=== PATIENT | male | born 1945 | race Two or more races ===

== ENCOUNTER → 2024-10-09 | Outpatient (CLI) | payer MEDICARE, SELFPAY ==
--- NOTE | 2024-10-09 13:31 | XR_ITS ---
Examination: CT chest, without intravenous contrast. CT abdomen, without intravenous contrast. CT pelvis, without intravenous contrast. 2-D sagittal and coronal reconstructions. 3-D reconstructions. Date and time of exam:October 09, 2024 1355 hours Comparison April 03, 2012 INDICATIONS: 70 pound weight loss in the last 2 years CTDI vol (mgy) 5.26 DLP (MGycm)112 Technique: Multiple CT images, 3.0 mm slice thickness, obtained chest, abdomen, pelvis, with the high-resolution 64 slice scanner.. Sagittal and coronal 2-D reconstructions are obtained. 3-D reconstructions Low dose protocols were performed. One or more of the following dose reduction techniques were used; automated exposure control, adjustment of the mA and/or KV according to patient size, use of iterative reconstruction technique. Findings: No thoracic aortic aneurysm dilatation Pulmonary artery segments are not enlarged Heavy calcification left main left anterior descending left circumflex right coronary arteries Mild enlargement cardiac contour No pneumonia or pulmonary edema or pleural disease No visualized liver or splenic lesion Absent gallbladder No pancreatic or adrenal mass 2 mm nonobstructing right renal calculus Aorta normal size No bowel obstruction Normal appendix Colonic diverticulosis, no diverticulitis Normal seminal vesicles No prostatomegaly No bladder mass or bladder calculi Prominent osteopenia IMPRESSION: No mediastinal lymphadenopathy Heavy coronary artery calcification No pneumonia, pulmonary edema or pleural disease 2 mm nonobstructing right renal calculus No abdominal or pelvic lymphadenopathy Normal appendix
== END | disposition home or self-care (01) ==
LOC: CCTX 13:20
PROVIDERS: PCP Internal Medicine; Referring Provider Internal Medicine; Visit Provider Internal Medicine
DX: I25.10 Atherosclerotic heart disease of native coronary artery without angina pectoris (principal); N20.0 Calculus of kidney
CPT/HCPCS: 71250; 74176

== ENCOUNTER → 2024-11-11 | Outpatient (CLI) | payer MEDICARE, SELFPAY ==
[2024-11-11 15:12] LABS: Basophils # (Auto) 0.0 Thou/mm3 (0.0-0.2); Basophils % (Auto) 1 % (0-2.5); Eosinophils # (Auto) 0.0 Thou/mm3 (0.0-0.5); Eosinophils % (Auto) 0 % (0-10); Hematocrit 40.7 % (41.0-53.0); Hemoglobin 13.4 g/dL (13.5-16.0); Immature Granulocytes Auto 0.01 Thou/mm3 (0.00-0.00); Lymphocytes # (Auto) 0.9 Thou/mm3 (1.0-4.8); Lymphocytes % (Auto) 14 % (10-50); Mean Corpuscular HGB Conc 32.9 g/dl (31.0-37.0); Mean Corpuscular Hemoglobin 30.5 pg (25.0-35.0); Mean Corpuscular Volume 93 fL (80-100); Monocytes # (Auto) 0.5 Thou/mm3 (0.0-0.8); Monocytes % (Auto) 7 % (0-12); Neutrophils # (Auto) 5.0 Thou/mm3 (1.8-7.7); Neutrophils % (Auto) 78 % (37-80); Nucleated Red Blood Cell # 0.00 Thou/mm3 (0.00-0.00); Nucleated Red Blood Cell % 0 /100 WBC (0); Platelet Count 139 Thou/mm3 (140-440); RDW Standard Deviation 47.4 fL (35.1-43.9); Red Blood Count 4.40 Miln/mm3 (4.50-5.90); White Blood Count 6.3 Thou/mm3 (3.8-10.6)
[2024-11-11 15:37] LABS: Alanine Aminotransferase 488 U/L (10-49); Albumin, Serum 3.4 gm/dL (3.4-4.8); Albumin/Globulin Ratio 1.2 (1.2-2.2); Alkaline Phosphatase 1784 U/L (46-116); Amylase 71 U/L (30-118); Anion Gap 9 (7-16); Aspartate Amino Transferase 727 U/L (0-34); BUN/Creatinine Ratio 23 Ratio (12-20); Bilirubin,Total 14.2 mg/dL (0.3-1.2); Blood Urea Nitrogen 23 mg/dL (9-23); Calcium 10.5 mg/dL (8.3-10.6); Calcium (Corrected) 11.0 mg/dL (8.5-10.1); Carbon Dioxide 29.0 mMol/L (20.0-31.0); Chloride 94 mMol/L (98-107); Creatinine (Component) 1.0 mg/dL (0.6-1.3); Globulin 2.8 gm/dL (2.3-3.5); Glucose 162 mg/dL (74-106); Lipase 104 U/L (12-53); Osmolality,Calculated 272 (275-295); Potassium 3.6 mMol/L (3.4-5.1); Sodium 132 mMol/L (136-145); Total Protein 6.2 gm/dL (5.7-8.2); eGFR > 60 See Note
== END | disposition home or self-care (01) ==
LOC: COPL 14:42
PROVIDERS: PCP Internal Medicine; Referring Provider Specialist; Visit Provider Specialist
DX: R14.0 Abdominal distension (gaseous) (principal); R10.32 Left lower quadrant pain; R11.0 Nausea
CPT/HCPCS: 36415; 80053; 81001; 82150; 83690; 85025

== ENCOUNTER → 2024-11-15 | Outpatient (CLI) | payer MEDICARE, SELFPAY ==
[2024-11-15 10:51] LABS: Collection Type, Urine Clean Catch; WBC,Urine 0 /hpf (0-5)
[2024-11-15 12:01] LABS: Bilirubin,Urine 4+ (Negative); Blood,Urine 1+ (Negative); Clarity,Urine Turbid (Clear/Hazy); Color,Urine Drk-Yellow (Lt Yel-Yel); Glucose, Urine 2+ (Negative); Ketones,Urine Negative (Negative); Leukocyte Esterase,Urine Negative (Negative); Nitrite,Urine Negative (Negative); PH,Urine 6.5 (5.0-7.0); Protein,Urine 1+ (Neg - Trace); RBC,Urine < 1 /hpf (0-3); Specific Gravity,Urine 1.020 (1.001-1.035); Squamous Epithelial Cell,Urine < 1 /hpf (0-5); Urobilinogen,Urine Negative mg/dL (0.0-1.0)
== END | disposition home or self-care (01) ==
LOC: SLDO 10:38
PROVIDERS: Referring Provider Specialist; Visit Provider Specialist
DX: R14.0 Abdominal distension (gaseous) (principal); R10.32 Left lower quadrant pain; R11.0 Nausea
CPT/HCPCS: 81001

== ENCOUNTER 2024-11-18 13:30 | Day surgery (SDC) | payer MEDICARE, SELFPAY ==
[2024-11-15 15:34] VITALS: BMI 19.6
[2024-11-18] VITALS (13 sets, daily range): BP systolic 113–176; BP diastolic 66–96; PULSE 71–88; RESP 12–24; TEMP 36.4; O2SAT 96–99; BMI 17.6
[2024-11-18] MEDS: BENZOCAINE 20% (Hurricaine) SPRAY 1 DOSE TOP (14:45)
[2024-11-18] MEDS: SODIUM CHLORIDE 0.9% 250 ML 250 ML 125 ML IV (14:45)
[2024-11-18] MEDS: fentaNYL CIT INJ 50 mCg/ML AMP 2ML (ASD USE ONLY) IVP (14:47)
[2024-11-18] MEDS: MIDAZOLAM INJ 1 MG/ML VIAL 2 ML (ASD USE ONLY) 2 MG IVP (14:47)
--- NOTE | 2024-11-18 15:25 | SUR.PHASEII ---
1506 patient is sleepy and arousable, breathing unlabored, s/p EGD under IV sedation, report received from Kyra NATH. patient has jaundice color to skin and eyes.
--- NOTE | 2024-11-18 16:10 | SUR.PHASEII ---
1608 patient is awake, alert, breathing unlabored, able to drink 7up with no nausea, vomiting or difficulty swallowing, meets discharge criteria, discharge instructions given to patient and daughter Luana, patient discharged home in wheelchair with all belongings.
== END 2024-11-18 16:08 | disposition home or self-care (01) ==
PROVIDERS: PCP Family Medicine; Referring Provider Specialist; Visit Provider Specialist
PROC: (CPT 43239; 2024-11-18 13:45)
DX: K22.2 Esophageal obstruction (principal); K20.90 Esophagitis, unspecified without bleeding; K29.70 Gastritis, unspecified, without bleeding; K31.89 Other diseases of stomach and duodenum; Z79.82 Long term (current) use of aspirin; Z79.899 Other long term (current) drug therapy; I10 Essential (primary) hypertension; E78.5 Hyperlipidemia, unspecified
CPT/HCPCS: 43248; 43239; A4649; J2250; J3010; J7050; A9270

== ENCOUNTER 2024-11-18 16:32 | Emergency (ER) | payer MEDICARE, SELFPAY ==
[2024-11-18] VITALS (10 sets, daily range): BP systolic 125–151; BP diastolic 70–84; PULSE 66–92; RESP 13–20; TEMP 36.7–37.1; O2SAT 90–98; BMI 18.2
--- NOTE | 2024-11-18 16:56 | XR_ITS ---
Examination: CT cervical spine without contrast 2-D sagittal reconstructions 2-D coronal reconstructions 3-D reconstructions. Exam date and time:November 18, 2024, 1805 hrs. Indications: Ground-level fall today with injury to the neck, neck pain CTDI:vol (mGy) 14.2 DLP: (mGycm) 337 Technique: Multiple 2 mm axial sections of the cervical spine have been obtained. The coronal and sagittal reconstructions have been obtained. 3-D reconstructions have been obtained. Low dose protocols were performed. One or more of the following dose reduction techniques were used; automated exposure control, adjustment of the mA and/or KV according to patient size, use of iterative reconstruction technique. Findings: Axial sections demonstrate intact base of the skull. C1 exhibit satisfactory relationship to the odontoid. No acute cervical vertebral body fracture seen. Alignment posterior spinous processes satisfactory. Impression: No acute cervical fracture.
--- NOTE | 2024-11-18 16:56 | XR_ITS ---
Examination: CT brain head without contrast. 2-D sagittal coronal reconstructions Date and time of exam:November 18, 2024, 1805 hrs. Indications: Ground-level fall today with injury to the head, head pain CTDI: vol (mGy):52.6 DLP: (mGycm):1131 Technique: Multiple CT axial sections of the brain have been obtained, 5 mm slice thickness. Contrast has not been administered. 2-D sagittal, coronal reconstructions have been obtained Low dose protocols were performed. One or more of the following dose reduction techniques were used; automated exposure control, adjustment of the mA and/or KV according to patient size, use of iterative reconstruction technique. Findings: No significant ventricular enlargement. Intra-axial or extra-axial hemorrhage density is not seen. No mass effect or midline shift Basal cisterns are not remarkable. Fourth ventricle is midline. Cranial vault intact. Impression: Negative for acute hemorrhage, mass effect or midline shift
--- NOTE | 2024-11-18 17:03 | EKG_ITS ---
[facility] Test Date: 2024-11-18 Pat Name: SHEN MONTALVO Department: Room: - Gender: Male Cell Room Supervisor: : 1945 Requested By: Yovany Manuel Order Number: [id number] Reading MD: Yovany Manuel Measurements Intervals [place] Rate: 83 P: 52 ME: 150 QRS: -57 QRSD: 91 T: 67 QT: 370 QTc: 436 Interpretive Statements SINUS RHYTHM LEFT AXIS DEVIATION [QRS AXIS < -30] PATTERN CONSISTENT WITH PULMONARY DISEASE Compared to ECG 10/02/2023 08:35:46 Left-axis deviation now present Ventricular premature complex(es) no longer present /store/S0/[id number]/ecg/[id number].pdf
--- NOTE | 2024-11-18 17:05 | PD.EDADULT ---
ED General RME/HPI General Chief complaint: Weakness Stated complaint: HEAD PAIN S/P Fall Time Seen by Provider: 11/18/24 16:56 Arrival date/time: 11/18/24 16:32 CC: Fall and scalp laceration HPI patient fell after colonoscopy today by Dr. Mclain in the hospital. EMS reports stable vital signs and route. Baseline Glascow coma 14 is unchanged. Patient is noted to be profoundly jaundiced including icteric sclera's. Patient answers his name but is unable to state where he is, where he had his colonoscopy or what happened to him. Patient currently denies any physical pain. At 1999, daughter at bedside states the patient has had losing weight, and the loss of appetite for the last 6 weeks plus or minus. Related Data Home Medications ?Medication ?Instructions ?Recorded ?Confirmed atorvastatin 20 mg tablet 20 mg PO HS 11/08/22 11/18/24 ferrous sulfate 325 mg (65 mg 325 mg PO BID 11/08/22 11/18/24 iron) tablet aspirin 81 mg tablet,delayed 81 mg PO QDAY 10/02/23 11/18/24 release losartan 100 mg tablet 100 mg PO QDAY 10/02/23 11/18/24 Allergies Allergy/AdvReac Type Severity Reaction Status Date / Time No Known Drug Allergies Allergy Verified 11/18/24 14:09 Review of Systems Review of Systems Narrative Review of Systems: GEN: No fever, no chills, no weight loss EYES: No discharge, no visual changes, no pain HEENT: No ear pain, no congestion, no sore throat PULM: No shortness of breath, no cough, no congestion CV: No chest pain, no dyspnea on exertion, no palpitations GI: No nausea, no vomiting, no diarrhea, no pain, no constipation : No frequency, no urgency, no dysuria MUSC/SKEL: No joint pain, no back pain SKIN: Scalp laceration no rash PSYCH: No hallucinations, no depression HEME/LYMPH: No easy bleeding or bruising tendencies NEURO: No weakness, no headache Past Medical History Past Medical History NEUROLOGIC: Negative Neurological Disorders or Seizures CARDIAC: Positive Cardiac Disorders, Hypercholesterolemia and Hypertension; Negative Congestive Heart Failure RESPIRATORY: Negative Chronic Obstructive Pulmonary Disease (COPD) GASTROINTESTINAL: Positive Gastrointestinal Disorders (esophageal stricture), Gastrointestinal Bleed and Gastroesophageal Reflux Disease; Negative Hepatitis GENITOURINARY: Negative Genitourinary Disorders or Renal Disease MUSCULOSKELETAL: Negative Musculoskeletal Disorders ENT: Positive Cataracts (right) ENDOCRINE: Negative Endocrine Disorders, Diabetes Mellitus Type 1 or Diabetes Mellitus Type 2 HEMATOLOGIC: Positive Blood Disorders and Anemia OTHER HISTORY: Positive Hospitalization (surgery), Shingles and Measles; Negative Autoimmune Disease, Falls, Blood Transfusions, Blood Transfusion Reaction, Anesthesia Reactions, Chicken Pox or Cancer Family History FAMILY HISTORY: Negative Family Psychiatric Problems, Family Respiratory Disorders, Family Cardiac Disorders, Family Gastrointestinal Problems, Family Cancer, Family Surgery or Family Anesthesia Reaction Surgical History SURGICAL: Positive Coronary Artery Bypass Graft, Angiogram, Abdominal Surgery, Gastric Bypass Surgery and Vasectomy; Negative Pacemaker or Joint Replacement Social History SMOKING STATUS: Former smoker ED Exam Narrative Physical exam: [General: Thin but not emaciated not in any acute distress Head normocephalic, no step-offs hematoma induration ulceration or crepitus HEENT: Eyes pupils are PERRLA EOMs are intact no injected conjunctiva icteric sclera's. Mouth pink dry membranes uvula is midline swallow symmetrical. All other subsystems of HEENT are within acceptable limits Neck is supple nontender Chest equal chest rise nontender to palpation Respiratory: Clear to auscultation no wheezes crackles or rubs CV: Rate rhythm is regular no murmurs rubs or clicks Abdomen is soft nontender no masses positive bowel sounds all 4 quadrants Back: No CVA tenderness no spinous process tenderness from cervical spine thoracic and lumbar spine Skin: Jaundice, 2 cm full-thickness laceration to the right sikh. Otherwise skin is intact no petechiae rash induration ulceration or crepitus Extremities: Moving all extremity against resistance cap refill less than 2 seconds neurosensory intact Neuro: Awake alert oriented x2, person and place Glascow coma 15 no focal deficits] Course Course Course Narrative: Although the patient patient originally came to us status post fall via EMS after colonoscopy the profound jaundice is of concern review the medical record show the patient's T. bili has increased from 1.8-14 in the matter of 6 to 8 weeks. Patient also has profound transaminitis. Prior to complete workup patient's case was discussed with Dr. Mclain who just finished doing colonoscopy for this patient who request the patient get a complete workup including an MRCP and he follow-up with him with the results. T. bili has risen significantly from November 10 from the 14 to today November 18 to 6.2. At this time I am waiting for an MRCP in approximately 8 hours, now I am concerned that there is a mass involving blocking the CBD. Will scan the patient's abdomen particularly as that the daughter is now made mention that he has lost appetite and lost a considerable amount of weight. Also reading Dr. Mclain's note that there is a duodenal mass some concern that there may be metastasis or other masses in the abdomen. 2147. The patient's CT results come back showing the patient has significant hepatoid biliary duct dilatation predominantly at the CBD highly suspicious for mass again suspicious for neoplasm. T. bili has risen markedly in 9 days from 14-26. Patient's case laboratory findings clinical disposition and imaging discussed with Dr. Mclain, GI specialist, who agrees to work with his [facility] connections and GI surgeon at [facility] for transfer of this patient. He is requesting that the MRCP completed in the morning and then he will attempt to get the patient transferred to [facility]. Quality Measures none Orders Category Date Time Status CT Screening NOW Care 11/18/24 20:18 Completed EKG (ED ONLY) *Do not use* NOW Care 11/18/24 17:03 Completed MRI Screening NOW Care 11/18/24 17:[address] abdomen pelvis w con Stat Exams 11/18/24 20:[address] cervical spine wo con Stat Exams 11/18/24 16:[address] head/brain wo con Stat Exams 11/18/24 16:56 Completed EKG (ED Only) Stat Exams 11/18/24 17:03 Draft MR MRCP Stat Exams 11/19/24 Completed Ammonia Stat Lab 11/18/24 17:31 Completed B-Type Natriuretic Peptide Stat Lab 11/18/24 17:31 Completed CBC Stat Lab 11/18/24 17:31 Completed Comprehensive Metabolic Panel Stat Lab 11/18/24 17:31 Completed Drug Screen,Urine Stat Lab 11/18/24 18:09 Completed LDH (Lactate Dehydrogenase) Stat Lab 11/18/24 17:31 Completed Magnesium Stat Lab 11/18/24 17:31 Completed Partial Thromboplastin Time Stat Lab 11/18/24 17:31 Completed Prothrombin Time with INR Stat Lab 11/18/24 17:31 Completed Troponin I Stat Lab 11/18/24 17:31 Completed Urinalysis, C/S if Indicated Stat Lab 11/18/24 18:10 Completed Aspirin Chew Med 11/18/24 21:38 Discontinued 324 mg PO X1 ONE Vital Signs Vital signs: Vital Signs Temperature 98.7 F 11/18/24 16:38 Pulse Rate 92 11/18/24 16:38 Respiratory Rate 18 11/18/24 16:38 Blood Pressure 125/84 11/18/24 16:38 Pulse Oximetry (%) 98 11/18/24 16:38 Oxygen Delivery Method Room Air 11/18/24 16:38 PROCEDURES: Procedure Comment Laceration repair consent obtained, 4 cm semilunar full-thickness laceration to the right sikh. Anesthesia 1% lidocaine without epinephrine 3 mL injected in the local site. The site was cleaned and probed no foreign body was found site was then approximated with 3 interrupted sutures of 5-0 Ethilon with good approximation without complication patient tolerated the procedure well dressing was applied. Discharge Plan Plan Patient Disposition: [facility] Pt Being Transferred to: [facility] Prescriptions/Referrals Prescriptions/Med Rec: No Action atorvastatin 20 mg tablet 20 mg PO HS Patient Comments: TAKE 1 TABLET BY MOUTH EVERY DAY FOR CHOLESTEROL ferrous sulfate 325 mg (65 mg iron) tablet 325 mg PO BID Patient Comments: TAKE 1 TABLET BY MOUTH TWICE A DAY FOR ANEMIA aspirin 81 mg Tablet,Delayed Release (Dr/Ec) 81 mg PO QDAY losartan 100 mg Tablet 100 mg PO QDAY Referrals: Yomaira Bermudez MD [Primary Care Provider, Family Practice] - In 1 week Problem List Clinical Impression: Fall, Face lacerations Patient/Caregiver Discharge Instructions Print Language: Chinese Stand Alone Forms: Michelle Award Info., Patient Portal Info Letter MDM Clinical Information Provided by patient and EMS Medical [facility] Meds/Rx Considered, not Ordered None Labs/Rad/Tests considered, not Ordered None EKG EKG Interpretation narrative: EKG performed at 1722 shows a ventricular rate of 83 SD interval 150 QRS of 91 QTc of 410 the sinus rhythm left axis deviation. Lab Interpretation Lab(s) interpretation(s): CBC shows no leukocytosis H&H of 11.2 and 32.7 respectively platelets at 151. PT 13.3 INR 1.2 PTT of 28.5. CMP shows a sodium 133 potassium 3.9 chloride of 94. BUN is 17 creatinine of 0.8 glucose of 121 calcium of 11.1 total bili of 26.2, AST of 467, ALT of 364 ammonia less than 10 LDH at 271. Troponin of 0.132. Note troponin has been rising over the past 2 weeks. Urine is dark yellow turbid spec gravity 1.0241+ glucose 2+ blood 4+ bilirubin negative for UTI. UDS positive for fentanyl and benzos note patient fell after colonoscopy. Imaging Imaging interpretation: interpreted by me Provider imaging interpretation(s): CT of head and C-spine as interpreted me read by radiology as negative for any acute finding. Medication Administration(s) Medication Administration History Discontinued Medications Aspirin (Aspirin 81 Mg Chew) 324 mg PO X1 ONE Stop: 11/18/24 21:39 Last Admin: 11/18/24 21:49 Dose: 324 mg Documented By: TOSHIA
[2024-11-18 17:49] LABS: Basophils # (Auto) 0.1 Thou/mm3 (0.0-0.2); Basophils % (Auto) 1 % (0-2.5); Eosinophils # (Auto) 0.0 Thou/mm3 (0.0-0.5); Eosinophils % (Auto) 0 % (0-10); Hematocrit 32.7 % (41.0-53.0); Hemoglobin 11.2 g/dL (13.5-16.0); Immature Granulocytes Auto 0.04 Thou/mm3 (0.00-0.00); Lymphocytes # (Auto) 0.6 Thou/mm3 (1.0-4.8); Lymphocytes % (Auto) 6 % (10-50); Mean Corpuscular HGB Conc 34.3 g/dl (31.0-37.0); Mean Corpuscular Hemoglobin 32.0 pg (25.0-35.0); Mean Corpuscular Volume 93 fL (80-100); Monocytes # (Auto) 0.6 Thou/mm3 (0.0-0.8); Monocytes % (Auto) 7 % (0-12); Neutrophils # (Auto) 7.6 Thou/mm3 (1.8-7.7); Neutrophils % (Auto) 86 % (37-80); Nucleated Red Blood Cell # 0.00 Thou/mm3 (0.00-0.00); Nucleated Red Blood Cell % 0 /100 WBC (0); Platelet Count 151 Thou/mm3 (140-440); RDW Standard Deviation 51.3 fL (35.1-43.9); Red Blood Count 3.50 Miln/mm3 (4.50-5.90); White Blood Count 8.9 Thou/mm3 (3.8-10.6)
[2024-11-18 18:03] LABS: INR 1.2 (0.9-1.3); Partial Thromboplastin Time 28.5 Seconds (22.0-36.0); Prothrombin Time 13.3 Seconds (9.0-12.2)
[2024-11-18 18:06] LABS: B-Type Natriuretic Peptide 59 pg/mL (0-100)
[2024-11-18 18:08] LABS: Ammonia < 10 uMol/L (11-32)
[2024-11-18 18:22] LABS: Collection Type, Urine Clean Catch
[2024-11-18 18:37] LABS: Bacteria,Urine Rare; Bilirubin,Urine 4+ (Negative); Blood,Urine 2+ (Negative); Clarity,Urine Turbid (Clear/Hazy); Color,Urine Drk-Yellow (Lt Yel-Yel); Culture Indicated,Urine Not Indicated; Glucose, Urine 1+ (Negative); Ketones,Urine Trace (Negative); Leukocyte Esterase,Urine Negative (Negative); Nitrite,Urine Negative (Negative); PH,Urine 5.5 (5.0-7.0); Protein,Urine 1+ (Neg - Trace); RBC,Urine 3 /hpf (0-3); Specific Gravity,Urine 1.024 (1.001-1.035); Squamous Epithelial Cell,Urine < 1 /hpf (0-5); Urobilinogen,Urine Negative mg/dL (0.0-1.0); WBC,Urine 5 /hpf (0-5)
[2024-11-18 18:56] LABS: Amphetamine/Methamp Scrn,U Negative (Negative); Barbiturate Screen,Urine Negative (Negative); Benzodiazepines Screen,Urine Positive (Negative); Benzoylecgonine Screen, Ur Negative (Negative); Fentanyl Screen,Urine Positive (Negative); Opiate Screen,Urine Negative (Negative); THC Screen,Urine Negative (Negative)
[2024-11-18 19:58] LABS: Alanine Aminotransferase 364 U/L (10-49); Albumin, Serum 3.4 gm/dL (3.4-4.8); Albumin/Globulin Ratio 1.2 (1.2-2.2); Anion Gap 11 (7-16); Aspartate Amino Transferase 467 U/L (0-34); BUN/Creatinine Ratio 21 Ratio (12-20); Blood Urea Nitrogen 17 mg/dL (9-23); Calcium 11.1 mg/dL (8.3-10.6); Calcium (Corrected) 11.6 mg/dL (8.5-10.1); Carbon Dioxide 27.9 mMol/L (20.0-31.0); Chloride 94 mMol/L (98-107); Creatinine (Component) 0.8 mg/dL (0.6-1.3); Estimated Creatinine Clearance 59.0 mL/min (>60); Globulin 2.8 gm/dL (2.3-3.5); Glucose 121 mg/dL (74-106); LDH (Lactate Dehydrogenase) 271 U/L (120-246); Magnesium 1.9 mg/dL (1.6-2.6); Osmolality,Calculated 268 (275-295); Potassium 3.9 mMol/L (3.4-5.1); Sodium 133 mMol/L (136-145); Total Protein 6.2 gm/dL (5.7-8.2); eGFR > 60 See Note
[2024-11-18 20:08] LABS: Troponin I 0.132 ng/mL (0.0-0.045)
--- NOTE | 2024-11-18 20:18 | XR_ITS ---
Examination: CT abdomen with intravenous contrast CT pelvis with intravenous contrast 2-D coronal reconstructions 2-D sagittal reconstructions Date and time of exam:November 18, 20242050 hrs. Comparison: October 09, 2024 Indications: Elevated bilirubin on laboratory examination today. CTDI: vol (mGy) 5.40 DLP: (mGycm) 334 Technique: Multiple axial sections of the abdomen and pelvis have been obtained. 64 slice high-resolution scanner used. 3 mm axial sections have been obtained, post intravenous injection 60 cc [id number] 2-D sagittal, coronal reconstructions obtained. Low dose protocols were performed. One or more of the following dose reduction techniques were used; automated exposure control, adjustment of the mA and/or KV according to patient size, use of iterative reconstruction technique. 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
[2024-11-18 20:21] LABS: Bilirubin,Total 26.2 mg/dL (0.3-1.2)
[2024-11-18 20:29] LABS: Alkaline Phosphatase 1735 U/L (46-116)
[2024-11-18] MEDS: ASPIRIN 81 MG CHEW 324 MG PO (21:49)
[2024-11-19] VITALS (11 sets, daily range): BP systolic 141–162; BP diastolic 66–87; PULSE 64–82; RESP 12–19; TEMP 36.3–36.8; O2SAT 96–100
--- NOTE | 2024-11-19 | XR_ITS ---
MRI abdomen, without contrast. MRCP Date and time of exam: November 19, 2024 0718 hours INDICATIONS: Jaundice abdominal pain this week weight loss 6 weeks Technique: Multiple axial and coronal images of the abdomen have been obtained with the Siemens 1.5T MRI scanner. Images obtained included T1 weighted transverse images, T2-weighted transverse images, T2-weighted transverse images fat-suppressed, T2 weighted haste fat suppressed transverse images, T1 weighted images, in and out of phase images, T2-weighted coronal images, breath hold, T2 weighted haze coronal images as well as T2 weighted coronal thick slab images, MRCP. Findings: Intrahepatic biliary tract dilatation Marked abnormal extrahepatic biliary tract dilatation, common hepatic duct 20 mm, abrupt termination of the distal common bile duct coronal image 10 Pancreatic duct is dilated 7 mm No obvious pancreatic mass Renal scarring, no hydronephrosis Spleen is not enlarged No ascites Aorta normal size IMPRESSION: Marked abnormal extra hepatic biliary tract dilatation with abrupt termination of the distal common bile duct, highest on the differential list would be malignant stricture at the ampulla Recommend ERCP/biopsies follow-up
--- NOTE | 2024-11-19 01:12 | EDNOTE_ITS ---
Emergency Room Addendum Addendum Narrative: 2300: Care assumed from Yovany Santana NP (emergency mid-level provider). Past medical, surgical, social and family history reviewed. Vitals and home medications reviewed. Results and treatment plan discussed. I will assume the care of the patient at this time and will follow the patient, pending MRCP. The following addendum documentation note is intended to reflect any pending information, findings, or radiology results not included in the patient?s in itial chart by the previous shift scribe. 0600: Care assumed by Dr. Hu (emergency physician). Past medical, surgical, social and family history reviewed. Vitals and home medications reviewed. Results and treatment plan discussed. They will assume the care of the patient at this time and will follow the patient, pending MRCP.
--- NOTE | 2024-11-19 09:36 | PD.EDADDENDU ---
Emergency Room Addendum Addendum Narrative: 0600: Care assumed from Dr. Arreaga, the previous shift emergency physician. Past medical, surgical, social and family history reviewed. Vitals and home medications reviewed. I will assume the care of the patient at this time, pending MRCP and final disposition. Please refer to the emergency department record for history and examination from initial visit.?The following addendum documentation note is intended to reflect any pending information, findings, or radiology results not included in the patient?s initial chart. 0954: Transfer nurse made aware of need for transfer for ERCP. 1000: I spoke with [facility] transfer nurse. Discussed patients PMHx, HPI, ED course, exam findings, labs, and radiology results. States she will present the case to their team. Patient has been accepted for transfer at [facility]. 1255: EMS here to transfer the patient. RADIOLOGY Ordering Physician: Yovany Santana NP Date of Service: 11/19/24 Procedure(s): MR MRCP Accession Number(s): [id number] cc: Yovany Santana NP; Tyson Lanza MD; Yomaira Bermudez MD~ MRI abdomen, without contrast. MRCP Date and time of exam: November 19, 2024 0718 hours INDICATIONS: Jaundice abdominal pain this week weight loss 6 weeks Technique: Multiple axial and coronal images of the abdomen have been obtained with the Siemens 1.5T MRI scanner. Images obtained included T1 weighted transverse images, T2-weighted transverse images, T2-weighted transverse images fat-suppressed, T2 weighted haste fat suppressed transverse images, T1 weighted images, in and out of phase images, T2-weighted coronal images, breath hold, T2 weighted haze coronal images as well as T2 weighted coronal thick slab images, MRCP. Findings: Intrahepatic biliary tract dilatation Marked abnormal extrahepatic biliary tract dilatation, common hepatic duct 20 mm, abrupt termination of the distal common bile duct coronal image 10 Pancreatic duct is dilated 7 mm No obvious pancreatic mass Renal scarring, no hydronephrosis Spleen is not enlarged No ascites Aorta normal size IMPRESSION: Marked abnormal extra hepatic biliary tract dilatation with abrupt termination of the distal common bile duct, highest on the differential list would be malignant stricture at the ampulla Recommend ERCP/biopsies follow-up Dictated By: Tyson Lanza MD Signed By: <Electronically signed by Tyson Lanza MD in [place]> 11/19/24 0859
--- NOTE | 2024-11-19 09:56 | PC.CC ---
Addendum entered by Rhonda Gutierrez RN 11/19/24 11:42: Chart printed, all signatures obtained, chart given to retail customer service representative Alicia Addendum entered by Rhonda Gutierrez RN 11/19/24 11:42: Patient accepted to [facility] by Joceline, ER to ER, report to [phone] Addendum entered by Rhonda Gutierrez RN 11/19/24 11:41: CD made, Chart printed. Addendum entered by Rhonda Gutierrez RN 11/19/24 10:01: Spoke to Joceline at [facility], chart faxed, images shared, call transferred to Dr. Hu Original Note: Made aware by Dr. Hu that patient needs transfer for ERCP, called [facility] who states they do not have ERCP capabilities
--- NOTE | 2024-11-19 11:24 | PC.NURSE ---
SPOKE TO GUERO WATSON, PT'S DAUGHTER, AND ASKED IF PT HAS HAD A GASTRIC BYPASS DONE ON PT PRIOR; PER JOSE, NO, MY DAD HAS NOT HAD A GASTRIC BYSPASS BEFORE.
--- NOTE | 2024-11-19 12:16 | PC.NURSE ---
SPOKE TO CLEMENT NATH FROM [facility] FOR SBAR REPORT AT THIS TIME.
--- NOTE | 2024-11-19 12:53 | PC.NURSE ---
SBAR REPORT GIVEN TO Deb MIGUEL SEISMIC PROSPECTING OBSERVER HELPER AT THIS TIME; EMS TO TRANSPORT PT TO [facility].
== END 2024-11-19 13:01 | disposition short-term general hospital (02) ==
PROVIDERS: Registered Nurse General Practice; Emergency Provider Emergency Medicine; PCP Family Medicine
DX: S01.81XA Laceration without foreign body of other part of head, initial encounter (principal); S09.90XA Unspecified injury of head, initial encounter; S19.9XXA Unspecified injury of neck, initial encounter; K83.8 Other specified diseases of biliary tract; R94.31 Abnormal electrocardiogram [ECG] [EKG]; W18.30XA Fall on same level, unspecified, initial encounter; Y92.239 Unspecified place in hospital as the place of occurrence of the external cause
CPT/HCPCS: 12013; 36415; 70450; 72125; 74177; 74181; 80053; 80307; 81001; 82140; 83615; 83735; 83880; 84484; 85025; 85610; 85730; 93005; 99284; A4649; Q9967; A9270